=== PATIENT | female | born 1970 | race Caucasian/White ===

== ENCOUNTER 2019-03-29 15:02 | Emergency (ER) | payer SELFPAY ==
[~2019-03-29] VITALS: Ht 170.2 cm; Wt 102.5 kg
[2019-03-29 15:55] LABS: Basophils # (auto) 0.1 uL; Eosinophils # (auto) 0 uL; Eosinophils % (auto) 0.7 % (0.0-7.0); Hematocrit 42.9 % (36.0-46.0); Hemoglobin 14.2 g/dL (12.2-16.2); Lymphocytes # (auto) 2.2 uL; Lymphocytes % (auto) 31.1 % (10.0-50.0); Mean Corpuscular Hemoglobin 29.1 pg (28.0-32.0); Mean Corpuscular Hgb Conc. 33.2 g/dL (32.0-36.0); Mean Corpuscular Volume 87.7 fL (80.0-100.0); Monocytes # (auto) 0.4 uL; Monocytes % (auto) 5.6 % (0.0-12.0); Neutrophils # (auto) 4.4 uL; Neutrophils % (auto) 61.6 % (37.0-80.0); Platelet Count (auto) 288 10^3/uL (140-450); Red Blood Cells 4.89 10^6/uL (4.0-5.20); Red Cell Distribution Width 13.7 % (11.8-14.3); White Blood Cell 7.1 10^3/uL (4.4-10.8)
[2019-03-29 16:05] LABS: Urine Bacteria FEW /hpf (None Seen); Urine Blood 2+ /uL (Negative); Urine Hyaline Cast FEW /lpf (0 - 2); Urine Mucus FEW (None Seen); Urine Specific Gravity 1.031 (1.001-1.035); Urine WBC 3 /hpf (0 - 5)
[2019-03-29 16:10] LABS: Albumin 4.3 g/dL (3.4-5.0); Anion Gap 8 (5-15); BUN/Creatinine Ratio 20.5; Blood Urea Nitrogen 18 mg/dL (7-18); Calcium 9.2 mg/dL (8.5-10.1); Carbon Dioxide 23 mmol/L (21-32); Chloride 109 mmol/L (98-107); GFR African American 87 mL/min; GFR Non-African American 72 mL/min; Glucose 101 mg/dL (74-106); Potassium 3.9 mmol/L (3.5-5.1); Sodium 140 mmol/L (136-145)
[2019-03-29 16:15] LABS: Alanine Aminotransferase 26 U/L (13-56); Alkaline Phosphatase 67 U/L (45-117); Aspartate Aminotransferase 19 U/L (15-37); Bilirubin, Total 0.6 mg/dL (0.2-1.0); Total Protein 8.2 g/dL (6.4-8.2)
[2019-03-29 19:41] VITALS: BP 132/65
== END 2019-03-29 19:45 | disposition home or self-care (01) ==
LOC: ER 15:11
DX: B34.9 Viral infection, unspecified (principal); Z88.2 Allergy status to sulfonamides; Z90.49 Acquired absence of other specified parts of digestive tract; Z90.710 Acquired absence of both cervix and uterus
CPT/HCPCS: 36415; 70450; 80053; 81001; 84484; 85025

== ENCOUNTER 2019-04-13 20:18 | Inpatient (IN) | payer SELFPAY ==
[~2019-04-13] VITALS: Ht 170.2 cm; Wt 104.9 kg
[2019-04-13 21:38] LABS: Basophils # (auto) 0.1 uL; Basophils % (auto) 0.7 % (0.0-2.0); Eosinophils # (auto) 0 uL; Eosinophils % (auto) 0.3 % (0.0-7.0); Hematocrit 46.6 % (36.0-46.0); Hemoglobin 15.4 g/dL (12.2-16.2); Lymphocytes # (auto) 1.3 uL; Mean Corpuscular Hemoglobin 28.7 pg (28.0-32.0); Monocytes # (auto) 0.6 uL; Neutrophils # (auto) 12.5 uL; Platelet Count (auto) 351 10^3/uL (140-450); Red Blood Cells 5.36 10^6/uL (4.0-5.20); Red Cell Distribution Width 13.7 % (11.8-14.3); White Blood Cell 14.6 10^3/uL (4.4-10.8)
[2019-04-13 21:49] LABS: Amylase 29 U/L (25-115); Anion Gap 8 (5-15); Blood Urea Nitrogen 14 mg/dL (7-18); Calcium 9.6 mg/dL (8.5-10.1); Carbon Dioxide 24 mmol/L (21-32); Chloride 104 mmol/L (98-107); Glucose 146 mg/dL (74-106); Lipase 104 U/L (73-393); Magnesium 2.5 mg/dL (1.6-2.6); Potassium 3.9 mmol/L (3.5-5.1); Sodium 136 mmol/L (136-145)
[2019-04-13 21:51] LABS: Alanine Aminotransferase 54 U/L (13-56); Aspartate Aminotransferase 31 U/L (15-37); BUN/Creatinine Ratio 13.9; GFR African American 75 mL/min; GFR Non-African American 62 mL/min
[2019-04-13 21:57] LABS: Alkaline Phosphatase 92 U/L (45-117); Bilirubin, Total 0.9 mg/dL (0.2-1.0); Total Protein 8.4 g/dL (6.4-8.2)
[2019-04-14 00:16] LABS: Urine WBC None Seen /hpf (0 - 5)
[2019-04-14 00:26] LABS: Urine Bacteria NONE SEEN /hpf (None Seen); Urine Blood 1+ /uL (Negative); Urine Mucus MANY (None Seen); Urine Specific Gravity 1.034 (1.001-1.035)
[2019-04-14] MEDS ORDERED: MORPHINE SULFATE 4 MG/ML SYR/VIAL IV ONE (02:00)
[2019-04-14] MEDS ORDERED: SODIUM CHLORIDE 0.9% 1,000 ML IV ONE (02:00)
[2019-04-14] MEDS ORDERED: PIPERACILLIN-TAZOB 3.375GM 100 ML IV ONE (02:00)
[2019-04-14] MEDS ORDERED: ONDANSETRON HCL 4 MG/2 ML VIAL IV ONE (02:00)
[2019-04-14] MEDS ORDERED: ONDANSETRON HCL 4 MG/2 ML VIAL IV PRN (03:00)
[2019-04-14] MEDS ORDERED: traMADol HCL 50 MG TAB PO PRN (03:00)
[2019-04-14] MEDS ORDERED: TEMAZEPAM 15 MG CAP PO PRN (03:00)
[2019-04-14] MEDS ORDERED: MORPHINE SULFATE 4 MG/ML SYR/VIAL IV PRN (03:00)
[2019-04-14] MEDS: metroNIDAZOLE 500MG/100ML 100 ML IV SCH ×3 (06:14→21:18)
[2019-04-14] MEDS: FAMOTIDINE 20 MG TAB PO SCH ×2 (09:47→21:18)
[2019-04-14] MEDS: cefTRIAXone 1GM/50ML D5W 50 ML IV SCH (09:47)
[2019-04-14] MEDS ORDERED: NUTRTAB41 OR (11:01)
[2019-04-14] MEDS ORDERED: GASTROGRAFIN 120 ML SOL ONE (11:04)
--- NOTE | 2019-04-14 12:53 | NUR ---
MS admit from ER GEO BOYD admitted to tele/MS after SBAR received. Patient oriented to CONSTANZA ESQUIVEL RN primary RN, unit, room, bed, and unit policies regarding patient care and visiting hours. Patient is on room air, respirations even and unlabored. Patient denies pain at this time. Reviewed plan of care with patient, patient verbalized understanding. Bed in low and locked position, call light within reach. Will continue to monitor Q1 hour and PRN.
--- NOTE | 2019-04-14 13:10 | NUR ---
Dr. Patricia at bedside Discussing plan of care with patient. Will continue to monitor Q1 hour and PRN.
--- NOTE | 2019-04-14 13:50 | NUR ---
criminal records technician at bedside
[2019-04-14 14:20] VITALS: BP 119/78
--- NOTE | 2019-04-14 15:28 | NUR ---
Dr. Gill at bedside Discussing plan of care with patient, patient to have EGD tomorrow, and NPO after midnight. Will continue to monitor Q1 hour and PRN.
[2019-04-14 17:00] VITALS: BP 105/67
[2019-04-14] MEDS: POTASSIUM CHLORIDE 20 MEQ in D5W 5% 1,000 ML IV SCH (17:56)
[2019-04-14 18:00] LABS: INR 1.01 (0.9-1.15)
[2019-04-14] MEDS: PANTOPRAZOLE 40 MG TAB PO SCH ×2 (18:13→21:18)
--- NOTE | 2019-04-14 19:17 | NUR ---
Closing Note Report given to cook night RN. No signs or symptoms of distress noted at this time.
[2019-04-14 21:50] VITALS: BP 103/64
--- NOTE | 2019-04-15 01:15 | NUR ---
Received report from Tori MARTINS. Patient resting and in no distress. Will continue to monitor.
[2019-04-15 04:50] VITALS: BP 103/66
[2019-04-15] MEDS: metroNIDAZOLE 500MG/100ML 100 ML IV SCH ×2 (05:27→14:19)
[2019-04-15 05:31] LABS: Basophils # (auto) 0.1 uL; Eosinophils # (auto) 0.4 uL; Eosinophils % (auto) 5.9 % (0.0-7.0); Hematocrit 36.9 % (36.0-46.0); Hemoglobin 12.6 g/dL (12.2-16.2); Lymphocytes # (auto) 2.2 uL; Lymphocytes % (auto) 32.7 % (10.0-50.0); Mean Corpuscular Hemoglobin 29.8 pg (28.0-32.0); Mean Corpuscular Hgb Conc. 34.3 g/dL (32.0-36.0); Mean Corpuscular Volume 86.9 fL (80.0-100.0); Monocytes # (auto) 0.5 uL; Monocytes % (auto) 7.8 % (0.0-12.0); Neutrophils # (auto) 3.6 uL; Neutrophils % (auto) 52.6 % (37.0-80.0); Platelet Count (auto) 243 10^3/uL (140-450); Red Blood Cells 4.24 10^6/uL (4.0-5.20); Red Cell Distribution Width 13.7 % (11.8-14.3); White Blood Cell 6.8 10^3/uL (4.4-10.8)
[2019-04-15 05:44] LABS: BUN/Creatinine Ratio 28.9; Calcium 8.7 mg/dL (8.5-10.1); Potassium 3.7 mmol/L (3.5-5.1)
--- NOTE | 2019-04-15 07:25 | NUR ---
Opening Note Received report from operation shift supervisor RN. Patient resting in bed, no signs or symptoms of distress noted at this time. Patient is on room air, respirations even and unlabored. Patient denies pain at this time. Patient is NPO for schedule EGD today. Reviewed plan of care with patient, patient verbalized understanding. Bed in low and locked position, call light within reach. Will continue to monitor Q1 hour and PRN.
[2019-04-15] MEDS: cefTRIAXone 1GM/50ML D5W 50 ML IV SCH (08:13)
[2019-04-15] MEDS ORDERED: LIDOCAINE VISCOUS 2% 15ML UD ONE (08:21)
[2019-04-15] MEDS ORDERED: SODIUM CHLORIDE LOCK 10 ML ONE (08:21)
[2019-04-15] MEDS ORDERED: diphenhdrAMINE HCL 50 MG/1 ML VL ONE (08:22)
[2019-04-15 09:00] VITALS: BP 104/65
[2019-04-15] MEDS: POTASSIUM CHLORIDE 20 MEQ in D5W 5% 1,000 ML IV SCH (09:27)
[2019-04-15] MEDS: FAMOTIDINE 20 MG TAB PO SCH (10:00)
[2019-04-15] MEDS: PANTOPRAZOLE 40 MG TAB PO SCH (10:00)
--- NOTE | 2019-04-15 10:42 | NUR ---
Patient taken down to pre-op
[2019-04-15] MEDS: MIDAZOLAM HCL 5 MG/ML-1ML VIAL ONE ×2 (12:15→12:19)
[2019-04-15] MEDS: fentaNYL CITRATE 100 MCG/2 ML VL ONE ×2 (12:15→12:19)
--- NOTE | 2019-04-15 13:12 | NUR ---
PATIENT RETURNED FROM PROCEDURE PATIENT STATUS POST EGD: BP 119/73, HR 61, SPO2 94%. PATIENT IS EASY TO AROUSE AND ORIENTED TO SURROUNDINGS, NO SIGNS OF DISTRESS. RESPIRATIONS EVEN AND UNLABORED. FAMILY IS AT BEDSIDE. BED IS IN LOWEST POSITION, BRAKES ARE LOCKED, CALL LIGHT WITHIN REACH, AND BED ALARM ON. WILL CONTINUE TO MONITOR. Signed: 04/15/19 at 1329 by JENNY GARCIA <Co-Signature Required> Co-Signed: 04/15/19 at 1329 by CONSTANZA ESQUIVEL RN RN
--- NOTE | 2019-04-15 13:20 | NUR ---
Dr. Patricia at bedside Discussing plan of care with patient and family. Patient ok to discharge home if tolerating diet. Patient provided lunch tray. Will continue to monitor Q1 hour and PRN.
[2019-04-15] MEDS ORDERED: PANT40T PO (13:54)
[2019-04-15 16:57] VITALS: BP 124/75
--- NOTE | 2019-04-15 18:10 | NUR ---
Patient tolerated diet Patient tolerated regular diet. Will precede with discharge per orders.
--- NOTE | 2019-04-15 18:20 | NUR ---
PATIENT DISCHARGED Discharge instructions given as ordered. Encourage to follow up with PMD as instructed. All questions and concerns addressed. Patient verbalized understanding. Medication reconciliation form completed and copy given to patient. IV removed with catheter intact, pressure dressing applied. Patient taken to vehicle via wheelchair with all personal belongings, accompanied by staff and family member. No distress noted at time of departure. Signed: 04/15/19 at 1821 by JENNY GARCIA <Co-Signature Required> Co-Signed: 04/15/19 at 1821 by CONSTANZA ESQUIVEL RN RN
== END 2019-04-15 18:32 | disposition home or self-care (01) | DRG 392 ==
LOC: EDBD 20:18 → ER 20:21 → OVERFLOW 20:22 → WEST WING 04-14 12:34
PROVIDERS: ADMIT Nurse Practitioner; ATTEND Internal Medicine Nephrology
PROC: 0DB68ZX Excision of Stomach, Via Natural or Artificial Opening Endoscopic, Diagnostic (ICD-10-PCS; principal; 2019-04-15 12:14)
DX: K29.60 Other gastritis without bleeding (principal); R18.8 Other ascites; A08.4 Viral intestinal infection, unspecified; E66.9 Obesity, unspecified; I10 Essential (primary) hypertension; K57.90 Diverticulosis of intestine, part unspecified, without perforation or abscess without bleeding; K76.0 Fatty (change of) liver, not elsewhere classified; Z80.9 Family history of malignant neoplasm, unspecified; Z86.73 Personal history of transient ischemic attack (TIA), and cerebral infarction without residual deficits; Z90.710 Acquired absence of both cervix and uterus; Z88.5 Allergy status to narcotic agent; Z88.2 Allergy status to sulfonamides; Z88.8 Allergy status to other drugs, medicaments and biological substances; Z90.49 Acquired absence of other specified parts of digestive tract; Z68.36 Body mass index [BMI] 36.0-36.9, adult
CPT/HCPCS: 36415; 43239; 74176; 74250; 80048; 80053; 81001; 82150; 83605; 83690; 83735; 84484; 85025; 85610; 87040; 93005; 96361; 96365; 96375; G0378; J0696; J2250; J2405; J2543; J3490